=== PATIENT | female | born 1985 | race Asian ===

== ENCOUNTER 2016-05-01 01:25 | Emergency (ER) | payer OTHER ==
[~2016-05-01] VITALS: Ht 170.2 cm; Wt 68.9 kg
--- NOTE | 2016-05-01 01:29 | ED GENERAL ADULT ---
History of Present Illness General Chief Complaint: General Adult Stated Complaint: NEEDLE STICK AT WORK FROM PT Source: patient Exam Limitations: no limitations Vital Signs & Intake/Output Vital Signs & Intake/Output Vital Signs Date Time Temp Pulse Resp B/P Pulse O2 O2 Flow FiO2 Ox Delivery Rate 05/01 0153 98.3 69 18 105/70 99 Room Air 05/01 0130 Room Air Allergies Coded Allergies: No Known Allergies (05/01/16) Reconcile Medications Emtricitabine/Tenofovir (Truvada 200 MG-300 MG Tablet) 200 MG-300 MG TABLET 1 TAB PO DAILY hiv prophylaxis Raltegravir Potassium (Isentress) 400 MG TABLET 1 TAB PO BID hiv prophylaxis Triage Nurses Notes Reviewed? yes Onset: Abrupt Duration: minute(s): Timing: single episode today Injury Environment: work Severity: mild Modifying Factors: Improves With: rest. 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 She states that there was a patient named Adan Up who coded a few minutes ago. In the course of placing a central line, she suffered a needle stick with the central line needle in her left second PIP joint. The needle had been contaminated with blood. She notes that she copiously washed out the needlestick. She notes the bleeding self resolved without problem. She is otherwise well. Past History Medical History Any Pertinent Medical History? none Surgical History Surgical History: none Family History Hx Contributory? No Review of Systems Review of Systems Constitutional: Reports: no symptoms. EENTM: Reports: no symptoms. Respiratory: Reports: no symptoms. Cardiovascular: Reports: no symptoms. GI: Reports: no symptoms. Genitourinary: Reports: no symptoms. Musculoskeletal: Reports: no symptoms. Skin: Reports: no symptoms. Neurological/Psychological: Reports: no symptoms. Hematologic/Endocrine: Reports: no symptoms. Immunologic/Allergic: Reports: no symptoms. All Other Systems: Reviewed and Negative Physical Exam Physical Exam General Appearance: well developed/nourished, no apparent distress Head: atraumatic Eyes: Bilateral: normal appearance. Neck: normal inspection Extremities: left hand with small puncture wound left second PIP joint. No active bleeding. No sign of infection. Range of motion is normal. Nontender to palpation. Neurologic/Psych: no motor/sensory deficits, awake, alert Core Measures ACS in differential dx? No CVA/TIA Diagnosis: No Severe Sepsis Present: No Septic Shock Present: No Progress Differential Diagnoses I considered the following diagnoses in my evaluation of the patient: Puncture wound. Plan of Care: Orders Procedure Date/time Status HIV EXPOSURE/NEEDLESTICK 05/01 128 Active HUMAN BETA HCG SCREEN 05/01 128 Active HEPT C ANTIBODY 05/01 128 Active HEPT B SURFACE ANTIBODY 05/01 128 Active GAMMA GLUTAMYL TRANSFERASE 05/01 128 Active COMPREHENSIVE METABOLIC PANEL 05/01 128 Active CBC WITHOUT DIFFERENTIAL 05/01 128 Complete TRNSFRASE ASPART AMINO 05/01 128 Active TRNSFRAS ALANINE AMINO 05/01 128 Active Laboratory Tests 05/01/16 0155: Anion Gap 12, Estimated GFR > 60, BUN/Creatinine Ratio 26.7 H, Glucose 99, Calcium 9.7, Total Bilirubin 0.6, GGT 19, AST 18, ALT 28, Alkaline Phosphatase 78, Total Protein 7.6, Albumin 4.5, Globulin 3.1, Albumin/Globulin Ratio 1.5, Total Beta HCG NEGATIVE, CBC w Diff NO MAN DIFF REQ, RBC 4.95, MCV 80.4 L, MCH 27.9, RDW 13.5, MPV 7.0 L, Gran % 50.1, Lymphocytes % 41.3, Monocytes % 5.3, Eosinophils % 2.8, Basophils % 0.5, Absolute Granulocytes 3.5, Absolute Lymphocytes 2.9, Absolute Monocytes 0.4, Absolute Eosinophils 0.2, Absolute Basophils 0, PUBS MCHC 34.6, Hep Bs Antibody Pending, Hepatitis C Antibody Pending, HIV 1&2 Antibody NONREACTIVE Initial ED EKG: none Departure Departure Disposition: HOME OR SELF CARE Condition: Stable Clinical Impression Primary Impression: Needlestick injury accident Referrals: CODY SALDAÑA MD (PCP/Family) Departure Forms: Customer Survey General Discharge Information Prescriptions: Current Visit Scripts Emtricitabine/Tenofovir (Truvada 200 MG-300 MG Tablet) 1 TAB PO DAILY #30 TAB Raltegravir Potassium (Isentress) 1 TAB PO BID #60 TAB Comments Needle stick blood work done as per protocol. Patient signed consent form for HIV test. I discussed this with the nursing product blending supervisor will pursue blood work on the index patient Adan Up. After much discussion, we will initiate HIV prophylaxis pending blood work results of patient. Patient will follow-up with occupational medicine in the morning. HIV test negative. Other serologies pending. Critical Care Note Critical Care Note Critical Care Time: non-applicable
[2016-05-01 01:53] VITALS: BP 105/70
[2016-05-01] MEDS ORDERED: ISENTRESS400 M1 PO (01:58)
[2016-05-01] MEDS ORDERED: TRUVADA 200 MG1 EACH PO (01:58)
[2016-05-01 02:03] LABS: ABSOLUTE BASOPHIL COUNT 0 /CUMM (0.0-0.2); ABSOLUTE EOSINOPHIL COUNT 0.2 /CUMM (0.0-0.7); ABSOLUTE GRANULOCYTE CT 3.5 /CUMM (1.4-6.5); ABSOLUTE LYMPH COUNT 2.9 /CUMM (1.2-3.4); ABSOLUTE MONOCYTE COUNT 0.4 /CUMM (0.10-0.60); BASOPHIL % 0.5 % (0.0-2.0); EOSINOPHIL % 2.8 % (0-5); GRANULOCYTE % 50.1 % (42.2-75.2); HEMATOCRIT 39.8 % (37-47); MEAN CORPUSCULAR HGB 27.9 PG (27.0-31.0); MEAN CORPUSCULAR HGB CONC 34.6 G/DL (33.0-37.0); MEAN CORPUSCULAR VOLUME 80.4 FL (81.0-99.0); PLATELET COUNT 256 /CUMM (130-400); RBC DISTRIBUTION WIDTH 13.5 % (11.5-14.5); RED BLOOD CELL CT 4.95 /CUMM (4.20-5.40); WHITE BLOOD CELL COUNT 7.1 /CUMM (4.8-10.8)
== END 2016-05-01 02:15 ==
LOC: ERH 01:25
PROVIDERS: Pediatrics
DX: S61.231A Puncture wound without foreign body of left index finger without damage to nail, initial encounter (principal); W46.1XXA Contact with contaminated hypodermic needle, initial encounter; Y93.89 Activity, other specified; Y92.230 Patient room in hospital as the place of occurrence of the external cause
CPT/HCPCS: 86803; 87389